=== PATIENT | female | born 1990 | race Caucasian/White ===

== ENCOUNTER 2018-11-04 18:20 | Emergency (ER) | payer SELFPAY ==
[2018-11-04 20:18] VITALS: BP 127/80
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
== END 2018-11-04 20:40 | disposition left against medical advice (07) ==
LOC: ED 18:20
DX: H57.12 Ocular pain, left eye (principal); Z53.21 Procedure and treatment not carried out due to patient leaving prior to being seen by health care provider